=== PATIENT | male | born 1995 | race Caucasian/White ===

== ENCOUNTER 2017-07-02 19:25 | Emergency (ER) | payer OTHER ==
[2017-07-02] VITALS (8 sets, daily range): BP systolic 124–148; BP diastolic 61–85; PULSE 68–78; RESP 16–20; TEMP 98.7; O2SAT 97–100
[~2017-07-02 19:25] MED LIST: AMOX500T PO; Z.0.NO CURRENT MEDS
[2017-07-02] MEDS ORDERED: SODIUM CHLOR 0.9% 1000 ML INJ 1,000 ML IV SCH (19:42)
[2017-07-02] MEDS ORDERED: methylPREDNISolone SOD SUCC 125 MG/2 ML VIAL IM ONE (19:45)
[2017-07-02] MEDS ORDERED: FAMOTIDINE 20 MG/2 ML VIAL IV PUSH ONE (19:45)
[2017-07-02] MEDS ORDERED: SODIUM CHLORIDE 0.9% FLUSH 10 ML FLUSH IV FLUSH PRN (19:45)
[2017-07-02] MEDS ORDERED: diphenhydrAMINE HCL 50 MG/ML VIAL IVP ONE (19:45)
[2017-07-02] MEDS ORDERED: RESP: ALBUTEROL 2.5 MG/IPRATROPIUM 0.5 MG NEB (SCH) INH ONE (19:45)
--- NOTE | 2017-07-02 19:51 | PD ---
HPI Chief Complaint: Allergic/Adverse Reaction Time Seen by Provider: 19:39 Travel History International Travel<30 days: No Contact w/Intl Traveler<30days: No Traveled to known affect area: No History of Present Illness HPI 22-year-old male here with his mom for evaluation of possible allergic reaction. The reaction occurred just shortly after eating a vegan tiramisu with several different nuts. Patient reports having felt right upper lip swelling, tongue swelling, and scratchiness soreness in his throat as well as some tightness in his chest with breathing. He took 25 mg of Benadryl at home and reports that his symptoms have slightly improved. He is allergic to erythromycin, however does not know of any other allergies. No rash. PFSH Past Medical History Asthma: Yes (HAS NOT USED AN INHALER SINCE THE THIRD GRADE) Immunizations Current: Yes Social History Alcohol Use: No Tobacco Use: No Substance Use: No Allergies-Medications (Allergen,Severity, Reaction): Coded Allergies: erythromycin base (Unverified Allergy, Severe, SKIN RASH, 07/02/17) Reported Meds & Prescriptions Reported Meds & Active Scripts Active Review of Systems Except as stated in HPI: all other systems reviewed are Neg Physical Exam Narrative GENERAL: Well-developed, well-nourished, comfortable, no apparent distress. SKIN: Focused skin assessment warm/dry. No rash. HEAD: Atraumatic. Normocephalic. EYES: Pupils equal and round. No scleral icterus. No injection or drainage. ENT: No nasal bleeding or discharge. Mucous membranes pink and moist. 2+ tonsils bilaterally without exudates. Uvula is midline. Normal phonation. Mild tongue swelling. Mild right upper lip swelling. NECK: Trachea midline. No JVD. CARDIOVASCULAR: Regular rate and rhythm. RESPIRATORY: No accessory muscle use. Clear to auscultation. Breath sounds equal bilaterally. GASTROINTESTINAL: Abdomen soft, non-tender, nondistended. MUSCULOSKELETAL: No obvious deformities. No clubbing. No cyanosis. No edema. NEUROLOGICAL: Awake and alert. No obvious cranial nerve deficits. Motor grossly within normal limits. Normal speech. PSYCHIATRIC: Appropriate mood and affect; insight and judgment normal. Data Data Last Documented VS Vital Signs Date Time Temp Pulse Resp B/P (MAP) Pulse Ox O2 Delivery O2 Flow Rate FiO2 07/02/17 21:40 78 18 124/72 (89) 97 Room Air 07/02/17 19:30 98.7 Orders Orders Ecg Monitoring (07/02/17 19:42) Iv Access Insert/Monitor (07/02/17 19:42) Oximetry (07/02/17 19:42) Diphenhydramine Inj (Benadryl Inj) (07/02/17 19:45) Methylprednisolone So Succ Inj (Solumedr (07/02/17 19:45) Famotidine Inj (Pepcid Inj) (07/02/17 19:45) Albuterol-Ipratropium Neb (Duoneb Neb) (07/02/17 19:45) Sodium Chlor 0.9% 1000 Ml Inj (Ns 1000 M (07/02/17 19:42) Sodium Chloride 0.9% Flush (Ns Flush) (07/02/17 19:45) Methylprednisolone So Succ Inj (Solumedr (07/02/17 20:00) Ondansetron Inj (Zofran Inj) (07/02/17 20:15) Group A Rapid Strep Screen (07/02/17 21:05) Strep Culture (Group A) (07/02/17 21:48) MDM Medical Decision Making Medical Screen Exam Complete: Yes Emergency Medical Condition: Yes Differential Diagnosis Allergic reaction, anaphylaxis Narrative Course Vital signs reviewed and are within normal limits. Patient presented with right upper lip swelling, mild left tongue swelling, and feeling scratchy sensation in his throat as well as some mild difficulty breathing. Symptoms seem to be from an allergic reaction. He was given IV Solu -Medrol, IV Benadryl, IV Pepcid, and an albuterol nebulized treatment and was observed in the emergency department for 3 hours. Shortly after he received these treatments his symptoms had improved. Patient has 2+ tonsils bilaterally without exudates. Patient's family believes that he may have had this tonsil enlargement for his entire life. Group A strep is negative. Patient is tolerating clear liquids in the emergency department. He no longer has tongue or lip swelling. He is in no respiratory distress. There is no stridor or wheezing on exam. He did have one episode of vomiting shortly after arriving to the emergency department and was given a dose of Zofran for this. After 3 hours of observation with improvement in symptoms, I believe that the patient is stable for discharge home with outpatient follow-up with a primary care physician this week. He will be given a prescription for prednisone to take once daily for the next 5 days as well as a prescription for an EpiPen and advised on how to use this. He was informed on when to return to the emergency department. Both the patient and the patient's mom verbalize understanding and agreement with plan. Diagnosis Primary Impression: Allergic reaction Qualified Codes: T78.40XA - Allergy, unspecified, initial encounter Referrals: Primary Care Physician 3 days Additional Instructions: Follow-up with your primary care physician this week. Return to the emergency department for worsening symptoms or any other concerns. Scripts Epinephrine Inj (Epipen 2-Javier Inj) 0.3 Mg/0.3 Ml Pfpen 0.3 MG IM ONCE Y for ALLERGIC REACTION, #1 PACK 0 Refills Prov: Jay Head MD 07/02/17 Prednisone (Prednisone) 50 Mg Tab 50 MG PO DAILY for 5 Days, #5 TAB 0 Refills Prov: Jay Head MD 07/02/17 Disposition: 01 DISCHARGE HOME Condition: Stable Jay Head MD Jul 02, 2017 19:51
[2017-07-02] MEDS ORDERED: methylPREDNISolone SOD SUCC 125 MG/2 ML VIAL IV PUSH ONE (20:00)
[2017-07-02] MEDS ORDERED: ONDANSETRON HCL 4 MG/2 ML VIAL IV PUSH ONE (20:15)
[2017-07-02] MEDS ORDERED: PRED50 PO (22:23)
[2017-07-02] MEDS ORDERED: EPIP0.3I IM (22:23)
== END 2017-07-02 22:59 | disposition home or self-care (01) ==
LOC: PHED 19:25
DX: T78.40XA Allergy, unspecified, initial encounter (principal); R09.89 Other specified symptoms and signs involving the circulatory and respiratory systems; R06.89 Other abnormalities of breathing; R11.10 Vomiting, unspecified; J45.909 Unspecified asthma, uncomplicated
CPT/HCPCS: 87081; 87880; 94664; 96361; 96374; 96375; 99284; J1200; J2405; J2930; J7030

== ENCOUNTER 2017-09-23 12:09 | Emergency (ER) | payer OTHER ==
[~2017-09-23] VITALS: Ht 189.2 cm; Wt 85.0 kg
[~2017-09-23 12:09] MED LIST changes: -AMOX500T PO; +EPIP0.3I IM; +PRED50 PO; -Z.0.NO CURRENT MEDS
[2017-09-23 12:30] VITALS: BP 132/75; PULSE 72; RESP 16; TEMP 99; O2SAT 97
[2017-09-23] MEDS ORDERED: DEXAMETHASONE SOD PHOS 20 MG/5 ML VIAL IV ONE (13:00)
[2017-09-23] MEDS ORDERED: EPINEPHrine HCL (1:1000) 1 MG/ML VIAL IM ONE (13:00)
[2017-09-23] MEDS ORDERED: FAMOTIDINE 20 MG/2 ML VIAL IV PUSH SCH (13:00)
[2017-09-23 13:16] VITALS: PULSE 67
[2017-09-23] MEDS ORDERED: EPIP0.3I IM (13:26)
[2017-09-23] MEDS ORDERED: PRED50 PO (13:26)
--- NOTE | 2017-09-23 13:26 | PD ---
HPI . Allergic reaction Chief Complaint: Allergic/Adverse Reaction Time Seen by Provider: 12:55 Travel History International Travel<30 days: No Contact w/Intl Traveler<30days: No Traveled to known affect area: No History of Present Illness HPI Patient presents for the acute onset of an allergic reaction. He states he was eating cashew use when he developed swelling of his throat and tongue. He also has some difficulty breathing. He states that the reaction started about 30 seconds after eating cashews. He reports a previous similar reaction at [facility]. He did take Benadryl prior to arrival here and states that he is feeling a little bit better but does continue to have symptoms. PFSH Past Medical History Asthma: Yes (HAS NOT USED AN INHALER SINCE THE THIRD GRADE) Diminished Hearing: No Immunizations Current: Yes Tetanus Vaccination: < 5 Years Influenza Vaccination: No Past Surgical History Tympanostomy Tube: Yes Social History Alcohol Use: No Tobacco Use: No Substance Use: No Allergies-Medications (Allergen,Severity, Reaction): Coded Allergies: cashew nut (Verified Allergy, Severe, 09/23/17) erythromycin base (Unverified Allergy, Severe, SKIN RASH, 09/23/17) Reported Meds & Prescriptions Reported Meds & Active Scripts Active Epipen 2-Javier Inj (Epinephrine) 0.3 Mg/0.3 Ml Pfpen 0.3 Mg IM ONCE PRN Prednisone 50 Mg Tab 50 Mg PO DAILY 5 Days Review of Systems Except as stated in HPI: all other systems reviewed are Neg HENT: Positive: Other (swelling of the throat and tongue) Respiratory: Positive: Shortness of Breath Skin: No Rash Physical Exam Narrative GENERAL: Awake and alert and in no acute distress. SKIN: Warm and dry. No rash. HEAD: Normocephalic/atraumatic. EYES: Pupils are equal. Extraocular movements are intact. ENT: Mild edema of the oropharynx. NECK: Normal range of motion. CARDIOVASCULAR: Regular rate and rhythm. RESPIRATORY: Nonlabored respirations. Lungs are clear with good air movement throughout. MUSCULOSKELETAL: Atraumatic. NEUROLOGICAL: Nonfocal. PSYCHIATRIC: Appropriate mood and affect. Data Data Last Documented VS Vital Signs Date Time Temp Pulse Resp B/P (MAP) Pulse Ox O2 Delivery O2 Flow Rate FiO2 09/23/17 13:16 67 114/56 09/23/17 13:02 Room Air 09/23/17 12:30 99.0 16 97 Orders Orders ^ Saline Lock (09/23/17 13:00) Dexamethasone Inj (Decadron Inj) (09/23/17 13:00) Epinephrine (1:1000) Inj (Adrenalin (1:1 (09/23/17 13:00) Famotidine Inj (Pepcid Inj) (09/23/17 13:00) MDM Medical Decision Making Medical Screen Exam Complete: Yes Emergency Medical Condition: Yes Differential Diagnosis My differential diagnosis of an allergic reaction includes but is not limited to localized allergic reaction, systemic allergic reaction, anaphylaxis Narrative Course This patient presents with swelling of the throat and tongue immediately after eating cashews. He had taken Benadryl prior to arrival with some relief of his symptoms. I have subsequently ordered epinephrine, Decadron and Pepcid. The patient has improved with treatment. Critical Care Narrative Aggregate critical care time was 20 minutes. Time to perform other separately billable procedures was not included in the critical care time. My time did not include minutes spent treating any other patients simultaneously or on activities that did not directly contribute to the patient's treatment. The services I provided to this patient were to treat and/or prevent clinically significant deterioration due to systemic allergic reaction I provided critical care services requiring my management, as noted below: Chart data review, documentation time, medication orders and management, vital sign assessments/reviewing monitor data, ordering and reviewing lab tests, ordering and interpreting/reviewing x-rays and diagnostic studies, care of the patient and discussion of the patient with the admitting physicians Diagnosis Primary Impression: Allergic reaction to food Qualified Codes: T78.1XXA - Other adverse food reactions, not elsewhere classified, initial encounter Patient Instructions: General Allergic Reaction (ED), General Instructions Additional Instructions: Avoid cashews. If you have a reaction in the future, use the EpiPen and take Benadryl 50 mg by mouth. Med/Other Pt SpecificInfo: Prescription(s) given Scripts Epinephrine Inj (Epipen 2-Javier Inj) 0.3 Mg/0.3 Ml Pfpen 0.3 MG IM ONCE Y for ALLERGIC REACTION, #1 PACK 0 Refills Prov: Flores Robert MD 09/23/17 Prednisone (Prednisone) 50 Mg Tab 50 MG PO DAILY for 5 Days, #5 TAB 0 Refills Prov: Flores Robert MD 09/23/17 Disposition: 01 DISCHARGE HOME Condition: Stable Flores Robert MD Sep 23, 2017 13:26
[2017-09-23 14:19] VITALS: BP 117/59
== END 2017-09-23 14:22 | disposition home or self-care (01) ==
LOC: PHED 12:09
DX: T78.1XXA Other adverse food reactions, not elsewhere classified, initial encounter (principal); Z88.1 Allergy status to other antibiotic agents; Z91.018 Allergy to other foods
CPT/HCPCS: 96372; 96374; 96375; 99284; J0171; J1100